=== PATIENT | female | born 1965 | race Caucasian/White ===

== ENCOUNTER 2017-02-26 03:12 | Emergency (ER) | payer OTHER ==
[~2017-02-26 03:12] MED LIST: CARAFATE1 GM PO; COLACE50 MG; CYMBALTA60 MG; GLIPIZIDE10 MG PO; GLIPIZIDE5 M2 PO; GLIPIZIDE5 MG; GLUCOPHAGE1000 MG PO; GLUCOPHAGE500 MG; JANUMET 50-1,1 UDTAB; KEFLEX; LEVEMIR100 U/M SQ; LEVEMIR100 UNITS/ SC; LIPITOR10 M1 PO; LISINOPRIL-HCT1 EAC3 PO; PROVERA; PROZAC20 MG PO; PROZAC40 MG; SYNTHROID112 MC1 PO; TYLENOL325 M2 PO; ULTRAM50 M1 PO
[2017-02-26] MEDS ORDERED: NEURONTIN300 M1 PO (03:32)
[2017-02-26] MEDS ORDERED: BACTRIM DS TAB1 EAC2 PO (03:35)
[2017-02-26 04:03] LABS: URINE BILIRUBIN NEGATIVE (NEG); URINE BLOOD LARGE (NEG); URINE GLUCOSE (UA) LARGE (NEG); URINE KETONE MODERATE (NEG); URINE LEUKOCYTE ESTERASE POSITIVE (NEG); URINE NITRITE NEGATIVE (NEG); URINE PROTEIN MODERATE (NEG); URINE SPECIFIC GRAVITY 1.015 (1.003-1.030)
[2017-02-26 04:05] LABS: URINE APPEARANCE CLOUDY; URINE COLOR YELLOW
[2017-02-26 04:08] LABS: URINE RBC 80-100 /[HPF] (0-5); URINE WBC FULL FIELD /[HPF] (0-5)
[2017-02-26 04:09] LABS: URINE BACTERIA 2+; URINE EPITHELIAL CELLS 0-3 /[HPF] (0-10)
[2017-02-26 04:13] LABS: BASO % 0.6 % (0-2); BASO ABSOLUTE COUNT 0.1 tho/cmm (0.0-0.2); EOS % 0.8 % (0-7); EOSINOPHIL ABSOLUTE COUNT 0.1 tho/cmm (0.0-0.7); HCT-HEMATOCRIT 43.7 % (34.0-49.0); HGB-HEMOGLOBIN 15.6 gm/dl (12.0-15.5); IMMATURE GRANULOCYTES ABSOLUTE 0.03 tho/cmm (0-0.03); IMMATURE GRANULOCYTES PERCENT 0.3 % (0-0.3); LYMPH % 14.8 % (20-45); LYMPH ABSOLUTE COUNT 1.5 tho/cmm (0.8-4.5); MCH (MEAN CORPUSCULAR HGB) 31.5 pg (28.0-32.0); MCHC MEAN CORPUSCULAR HGB CONC 35.7 % (32.0-36.0); MCV (MEAN CELL VOLUME) 88.3 fl (82.0-96.0); MEAN PLATELET VOLUME 9.8 cmc (9.4-12.4); MONO % 6.7 % (0-12); MONOCYTE ABSOLUTE COUNT 0.7 tho/cmm (0.0-1.2); NEUTROPHILS % 76.8 % (40-80); PLATELET COUNT 150 tho/cmm (150-450); RED BLOOD COUNT 4.95 mil/cmm (4.00-5.20); RED CELL DISTRIBUTION WIDTH 12.3 % (12.4-16.4); WHITE BLOOD COUNT 10.4 tho/cmm (4.0-10.0)
[2017-02-26 04:17] LABS: KETONE-BETA (WHOLE BLOOD) 0.8 mmol/L (0.0-0.6)
[2017-02-26 04:36] LABS: ALB/GLOB RATIO 0.9 (0.8-2.0); ALBUMIN 3.4 g/dl (3.5-5.0); ALKALINE PHOSPHATASE 76 U/L (33-138); ALT/SGPT 31 U/L (12-78); BILIRUBIN,TOTAL 1.2 mg/dl (0-1.5); BLOOD UREA NITROGEN 17 mg/dl (6-24); CALCIUM 9.1 mg/dl (8.5-10.5); CARBON DIOXIDE-VENOUS 22 mmol/L (22-32); CHLORIDE 102 mmol/l (96-110); CREATININE 0.93 mg/dl (0.50-1.10); GLUCOSE 336 mg/dL (70-110); LIPASE 165 U/L (73-393); SODIUM 136 mmol/L (135-145); eGFR VALUE FOR BLACK 81 mL/Min
[2017-02-26 04:49] LABS: ANION GAP 16 mmol/L (0-20); AST/SGOT 25 U/L (10-40); POTASSIUM 4.3 mmol/L (3.7-5.1)
[2017-02-26] MEDS ORDERED: KEFLEX500 M4 PO (06:42)
[2017-05-15] MEDS ORDERED: CIPRO500 M2 PO (15:02)
[2017-05-15] MEDS ORDERED: ZOFRAN ODT4 MG PO (17:14)
== END 2017-02-26 06:46 ==
LOC: EDMED 03:12
PROVIDERS: Emergency Medicine
DX: N39.0 Urinary tract infection, site not specified (principal); E86.0 Dehydration; E11.65 Type 2 diabetes mellitus with hyperglycemia; F32.9 Major depressive disorder, single episode, unspecified; Z90.49 Acquired absence of other specified parts of digestive tract
CPT/HCPCS: J0696; J7030